=== PATIENT | female | born 1980 | race Two or more races ===

== ENCOUNTER 2018-01-01 09:24 | Inpatient (IN) | payer OTHER ==
[~2018-01-01] VITALS: Ht 160 cm; Wt 95.3 kg
[2018-01-01] VITALS (15 sets, daily range): BP systolic 98–142; BP diastolic 51–78
[~2018-01-01 09:24] MED LIST: METFORMIN HCL500 M5 PO; ceFAZolin sod 2 GM in D5W 110 ML IVPB ONE
[2018-01-01] MEDS ORDERED: LR 1000ml 1,000 ML IVLG SCH (10:10)
[2018-01-01] MEDS ORDERED: Bupivacaine 0.5% Inj 30 ml vial INJ ONE (10:12)
[2018-01-01] MEDS ORDERED: Thrombin 5000 units TOPIC ONE (10:12)
[2018-01-01] MEDS ORDERED: Surgicel 4in x 8in TOPIC ONE (10:13)
[2018-01-01] MEDS ORDERED: EPINEPHrine 1mg/1ml Amp ONE (10:13)
[2018-01-01] MEDS ORDERED: Bacitracin 50000 Units Vial ONE (10:14)
[2018-01-01] MEDS ORDERED: Vancomycin 1gm inj IVPB ONE (10:14)
[2018-01-01] MEDS ORDERED: Labetalol 5mg/ml 20ml vial IV PRN (10:15)
[2018-01-01] MEDS ORDERED: Hydromorphone 0.5mg/0.5ml inj IVP PRN ×2 (10:15→16:15)
[2018-01-01] MEDS ORDERED: DiphenhydrAMINE 50mg/ml Inj IVP PRN ×2 (10:15→16:30)
[2018-01-01] MEDS ORDERED: oxyCODONE HCL/Acetaminophen 5/325mg ORAL PRN (10:15)
[2018-01-01] MEDS ORDERED: Midazolam 2mg/2ml Inj IVP PRN (10:15)
[2018-01-01] MEDS ORDERED: Acetaminophen (Non formulary) 100 ML IV ONE (10:15)
[2018-01-01] MEDS ORDERED: LORazepam Inj 2mg/ml 1ml IV PRN (10:15)
[2018-01-01] MEDS ORDERED: Ketorolac 30mg Inj IV PRN ×2 (10:15)
[2018-01-01] MEDS ORDERED: HYDROcodone/Acetamin 7.5/325 tab ORAL PRN (10:15)
[2018-01-01] MEDS ORDERED: Atropine Inj 1mg/10ml Syr IV PRN (10:15)
[2018-01-01] MEDS ORDERED: Norco 5mg/325mg tab ORAL PRN (10:15)
[2018-01-01] MEDS ORDERED: fentaNYL 100 mcg/2 mL IV PRN ×2 (10:15→16:15)
--- NOTE | 2018-01-01 10:27 | Anethesia Preoperative Eval ---
Anesthesia Pre-op PMH/ROS General Date of Evaluation: Jan 01, 2018 Time of Evaluation: 11:11 Anesthesiologist: Barrett ASA Score: ASA 3 Mallampati Score Class I : Soft palate, uvula, fauces, pillars visible Class II: Soft palate, uvula, fauces visible Class III: Soft palate, base of uvula visible Class IV: Only hard plate visible Mallampati Classification: Class II Surgeon: Symone Diagnosis: Back Pain Surgical Procedure: Bilateral L5-S1 Microdiscectomy, Laminotomy, L L4-5 Microdiscectomy, Lamino Anesthesia History: none Family History: no anesthesia problems Allergies: Coded Allergies: No Known Allergies (Unverified , 12/31/17) Medications: see eMAR Past Medical History Cardiovascular: Reports: HTN Endocrine: Reports: DM Other: obesity - BMI 39 PSxH Narrative: Cholecystectomy, GILMA Anesthesia Pre-op Phys. Exam Physician Exam Last Vital Signs Date Time Temp Pulse Resp B/P (MAP) Pulse Ox O2 Delivery O2 Flow Rate FiO2 01/01/18 09:58 98.5 87 18 136/74 99 Room Air 98.5 Constitutional: NAD Neurologic: CN 2-12 intact Cardiovascular: RRR Respiratory: CTA Gastrointestinal: S/NT/ND Airway Exam Mallampati Score: Class II MO: full ROM: full Teeth: intact Anesthesia Pre-op A/P Labs Urine Test Test 01/01/18 09:40 Urine HCG, Qualitative Negative (NEGATIVE) Risk Assessment & Plan Assessment: ASA 3 Plan: GA, BIS, GlideScope Status Change Before Surgery: No Pre-Antibiotics Dru Grams Ancef IV Given Within 1 Hr of Incision: Yes Time Given: 11:31 Michi Hyde MD Jan 01, 2018 10:26
--- NOTE | 2018-01-01 10:27 | Immediate Post-Op Evaluation ---
Immediate Post-Op Evalulation Immediate Post-Op Evalulation Procedure: Bilateral L5-S1 Microdiscectomy, Laminotomy, L L4-5 Microdiscectomy , Lamino Date of Evaluation: Jan 01, 2018 Time of Evaluation: 15:20 IV Fluids: 1400 LR Blood Products: 0 Estimated Blood Loss: 25 Urinary Output: 350 Blood Pressure Systolic: 129 Blood Pressure Diastolic: 78 Pulse Rate: 91 Respiratory Rate: 16 O2 Sat by Pulse Oximetry: 96 Temperature (Fahrenheit): 97 Pain Score (1-10): 3 Nausea: No Vomiting: No Complications 0 Patient Status: awake, reacts, patent, extubated, none Hydration Status: adequate Dru Grams Ancef IV Given Within 1 Hr of Incision: Yes Time Given: 11:26 Michi Hyde MD Jan 01, 2018 10:27
[2018-01-01] MEDS ORDERED: Sterile Water Irrig 1000ml IRRIG ONE (11:00)
[2018-01-01] MEDS ORDERED: NS Irrig 1000ml ONE (11:00)
[2018-01-01] MEDS ORDERED: Propofol 1,000mg/ 100ml btl IV ONE (11:00)
[2018-01-01] MEDS ORDERED: Glycopyrrolate 0.2mg/ml 1ml Vial ONE (11:00)
[2018-01-01] MEDS ORDERED: fentaNYL 100 mcg/2 mL IV ONE (11:00)
[2018-01-01] MEDS ORDERED: LR 1000ml ONE (11:00)
[2018-01-01] MEDS ORDERED: Lidocaine 1% MPF 10mg/ml 5ml ONE (11:00)
[2018-01-01] MEDS ORDERED: Midazolam 2mg/2ml Inj ONE (11:00)
[2018-01-01] MEDS ORDERED: Neostigmine 1mg/ml 10ml Inj ONE (11:00)
[2018-01-01] MEDS ORDERED: Sodium Chloride 10ml vial INJ ONE (11:00)
[2018-01-01] MEDS ORDERED: Zemuron 50mg/5ml Inj IV ONE (11:00)
--- NOTE | 2018-01-01 11:19 | Pre-Procedure Note/Attestation ---
Pre-Procedure Note/Attestation Complete Prior to Procedure Procedure Narrative: l5s1 laminotomies, microdecompression and microdiscectomy and left l45 laminotomies, microdecompression and microdiscectomy Indications for Procedure Pre-Operative Diagnosis: lumbar hnp with radiculopathy Attestation I attest that I discussed the nature of the procedure; its benefits; risks and complications; and alternatives (and the risks and benefits of such alternatives ), prior to the procedure, with the patient (or the patient's legal career services representative). I attest that, if there was a reasonable possibility of needing a blood transfusion, the patient (or the patient's legal career services representative) was given the [place] Department of [employer] Services standardized written summary, pursuant to the Saul Kathrine Blood Safety Act ([place] Health and Safety Code # 1645, as amended). I attest that I re-evaluated the patient just prior to the surgery and that there has been no change in the patient's H&P, except as documented below: JUAN MANUEL LY Jan 01, 2018 11:19
--- NOTE | 2018-01-01 14:44 | Brief Operative Note ---
Immediate Post Operative Note Operative Note Pre-op Diagnosis: lumbar hnp with radiculopathy Procedure: B/l L5S1 laminotomies, microdeompression and microdiscectomy L L45 laminotomies, microdecompression and microdiscectomy Post-op Diagnosis: same as pre-op Findings: consistent w/pre-op dx studies Surgeon: ALIYAH Pulper: NAZARIO TRACEY, NURSE GRAPHIC DESIGN TEACHER Anesthesiologist: BRIGIDO Anesthesia: general Specimen: yes Complications: none Fluids: 1400 CC CRYSTALLOID Estimated Blood Loss: minimal - 25 CC Drains: none Implant(s) used?: No JUAN MANUEL LY Jan 01, 2018 14:44
[2018-01-01] MEDS ORDERED: D5 1/2NS 1,000 ML IV SCH (15:45)
[2018-01-01] MEDS ORDERED: Rate Change PCA 1 Each MISC PRN (16:00)
--- NOTE | 2018-01-01 16:26 | Diagnostic Imaging Report ---
Indication: Low back pain, left lower extremity greater than right lower extremity, intraoperative Technique: Intraoperative images Comparison: none Findings: Localizer image demonstrates a surgical tool posterior to what is presumably the L5-S1 disc. Impression: Intraoperative imaging, as described
[2018-01-01] MEDS: PCA HYDROmorphone 1mg/ml 30 ML IV PRN (16:29)
[2018-01-01] MEDS ORDERED: PCA Education Pamphlet MISC ONE (17:00)
[2018-01-01] MEDS: PCA shift volume MISC SCH (19:26)
[2018-01-01] MEDS ORDERED: ceFAZolin 1gm/50ml Premix 50 ML IV SCH (22:00)
[2018-01-01] MEDS: ceFAZolin sod 1 GM in NS 55 ML IVPB SCH (22:31)
--- NOTE | 2018-01-01 23:15 | Operative Note - Dictated ---
DATE OF OPERATION: 01/01/2018 PREOPERATIVE DIAGNOSIS: L4-L5 and L5-S1 disc protrusions with stenosis and bilateral lower extremity radiculopathy. POSTOPERATIVE DIAGNOSIS: L4-L5 and L5-S1 disc protrusions with stenosis and bilateral lower extremity radiculopathy. PROCEDURE PERFORMED: 1. Left L5-S1 medial facetectomy, laminotomy, foraminotomy, and microdiscectomy. 2. Right L5-S1 medial facetectomy, laminotomy, and foraminotomy. 3. Left L4-L5 Laminotomy, medial facetectomy, foraminotomy and microdiscectomy. 4. Intraoperative use of microscope. 5. Intraoperative use of fluoroscopy. 6. SSEP and EMG monitoring. SURGEON: Hira Ashby M.D. PUNCHER: Rachel Wesley, nurse first grade teacher. ANESTHESIA: General endotracheal anesthesia. ANESTHESIOLOGIST: Michi Hyde M.D. INTRAOPERATIVE FINDINGS: Herniated nucleus pulposus stenosis and impingement at L4-L5 and L5-S1 with L5 and S1 nerve root impingement. ESTIMATED BLOOD LOSS: 45 mL. FLUIDS: 1.4 liters of crystalloid. INDICATIONS: This is a pleasant female, who has failed nonoperative treatments and options for above surgery was given. Risks, alternatives, and benefits were discussed with the patient. Risks include, but are not limited to, anesthesia complications including , medical complications including liver, kidney, and cardiopulmonary deficits, infection, bleeding, neurovascular injury, CSF leak, dural tear, need for future surgery as well as other complications. The patient understood and wished to proceed. Written and verbal consent was given. DESCRIPTION OF OPERATION: The patient was brought into the operating room supine on a stretcher. Subsequently, appropriate IV lines were placed and 2 g of Ancef was administered. Anesthesia was induced and the patient was successfully intubated. Sequential compression devices were placed on to the bilateral lower extremities. The patient was gently turned over onto the Iam frame. All bony prominences were well padded and the abdomen was assured to lay freely. The L4-L5 and L5-S1 interspaces were identified with preoperative fluoroscopy. The patient was prepped and draped in the usual sterile fashion with alcohol, chlorhexidine scrub, ChloraPrep, and Ioban draping. At this point, the intraoperatively sterilely draped microscope was brought into the field and a midline incision was carried out. Attention was first diverted to dissection and with monopolar cautery, the dorsal lumbar fascia was incised and the laminas at left L5-S1 and left L4-L5 and right L5-S1 were dissected. A radiopaque marker was placed at the level of the S1 pedicle, and the L4-L5 and L5-S1 levels were positively identified. Attention was first diverted to the left L5-S1 level and a safety belt installer retractor was set into place. With a high-speed drill,#1 through #5 Kerrison punches as well as the straight and curved curettes, an interlaminar laminotomy, medial facetectomy, and foraminotomy was carried out at L5-S1. The exiting left L5 nerve root was decompressed and the neural elements were carefully medially retracted and a disk protrusion/herniation at L5-S1 was found. At this point, a high-speed drill was carefully used to drill the outer shell of the disc, which was covered with bone. Once this was accomplished, a #11 blade was used to incise the disc and with a Michaels rongeur, Gunnar curette, nerve hook, as well as a Peapod pituitary, a discectomy was carried out. This was done until there was no further impingement on the traversing S1 nerve root. Once this was accomplished, disk space irrigation was done and no further loose fragments were found. A Valsalva at 40 mmHg was done and there was no CSF leak. The lateral recess foramina and central canal were found to be patent. Now, retractors were placed at the left L4-L5 level and with a high-speed drill, straight and curved curettes as well as number #1 through #5 Kerrison punches, an interlumbar laminotomy, medial facetectomy, and foraminotomy was carried out. The exiting left L4 nerve root was dissected and found to be decompressed, and the neural elements were carefully retracted medially and a disk protrusion/herniation was found at L4-L5. A #11-blade was used to make a horizontal slit incision into the disk herniation and the posterior annulus, and with pituitary rongeurs, Michaels rongeur, Gunnar curette, and Peapod rongeur, a microdiscectomy was carried out and all herniated disc material was removed until there was no further impingement on the neural elements. Once this was completed, disc space irrigation was done and there were no further loose fragments of disk. Valsalva at 40 mmHg was done and there was no CSF leak, and the central canal, lateral recess, and foramina were found to be patent. Now, attention was diverted to right L5-S1 and with the high-speed drill, straight and curved curettes, #1 through #5 Kerrison punches, a interlaminar laminotomy, medial facetectomy, and foraminotomy were carried out until the right L5 nerve nandini, which was exiting and the foramina was found to be patent. The right L5 nerve root was found to be significantly stenotic and a thorough decompression entailed. Once this was accomplished, lateral recess, foramina, and central canal at right L5-S1 was found to be completely patent and Valsalva at 40 mmHg was done and there was no CSF leak. Now, attention was diverted to closure. The wound was irrigated with triple antibiotic solution. 1 g of vancomycin powder was placed suprafascially and subfascially. The dorsal lumbar fascia was closed with #1 Vicryl sutures in a watertight interrupted fashion. The subdural and subcuticular layers were closed with 2-0 Vicryl sutures in an interrupted fashion. The skin was closed with Dermabond and Steri-Strips. A sterile dressing was placed. All sponge, needle, and instrument counts were correct. The patient was turned supine, was extubated in stable condition, and was taken to the recovery room in stable condition and found to be neurovascularly intact. Hira Ashby M.D. DR: LINETTE JOB#: [id number] CC:
[2018-01-02 04:00] VITALS: BP 96/57
[2018-01-02] MEDS: ceFAZolin sod 1 GM in NS 55 ML IVPB SCH ×3 (05:01→21:15)
[2018-01-02] MEDS: PCA shift volume MISC SCH ×2 (07:00→19:00)
[2018-01-02 08:10] VITALS: BP 104/58
--- NOTE | 2018-01-02 08:28 | 48 Hour Post Anesthesia Eval ---
Post Anesthesia Evaluation Procedure: Bilateral L5-S1 Microdiscectomy, Laminotomy, L L4-5 Microdiscectomy , Lamino Date of Evaluation: Jan 02, 2018 Time of Evaluation: 08:27 Blood Pressure Systolic: 102 0: 63 Pulse Rate: 72 Respiratory Rate: 20 Temperature (Fahrenheit): 97.6 O2 Sat by Pulse Oximetry: 98 Airway: patent Nausea: No Vomiting: No Pain Intensity: 2 Hydration Status: adequate Cardiopulmonary Status: stable Mental Status/LOC: patient returned to baseline Follow-up Care/Observations: n/a Post-Anesthesia Complications: none Follow-up care needed: N/A GLO GARCIA M.D. Jan 02, 2018 08:28
[2018-01-02] MEDS: metFORMIN 500mg tab ORAL SCH ×2 (09:17→17:03)
[2018-01-02 12:05] VITALS: BP 122/62
--- NOTE | 2018-01-02 15:52 | General Progress Note ---
Progress Note Progress Note Doing well ambulating well no leg pain mild LBP Avss a and o times 3 dressing cdi 5/5 ble calves soft and nt lt intact in the le a: doing well after sx p: oob pt pain meds scds dc megha am fu 7 days JUAN MANUEL LY Jan 02, 2018 15:52
[2018-01-02 16:10] VITALS: BP 140/74
[2018-01-02] MEDS: PCA HYDROmorphone 1mg/ml 30 ML IV PRN (17:04)
[2018-01-02 20:00] VITALS: BP 109/58
--- NOTE | 2018-01-02 21:42 | History and Physical ---
History of Present Illness Present Illness Allergies: Coded Allergies: No Known Allergies (Unverified , 12/31/17) Medication History Scheduled Metformin HCl (Metformin HCl ER), 500 MG PO BID, (Reported) Patient History Healthcare decision maker Resuscitation status Full Code Advanced Directive on File Physical Exam Last 24 Hour Vital Signs Date Time Temp Pulse Resp B/P (MAP) Pulse Ox O2 Delivery O2 Flow Rate FiO2 01/02/18 20:00 98.9 103 18 109/58 94 Room Air 98.9 01/02/18 19:11 101.2 01/02/18 18:12 101.6 01/02/18 16:10 101.4 98 18 140/74 98 101.4 01/02/18 12:05 98.7 84 20 122/62 96 98.7 01/02/18 08:28 207.7 72 20 98 01/02/18 08:10 98.4 18 104/58 95 98.4 01/02/18 08:10 98.4 80 18 104/58 95 98.4 01/02/18 04:00 16 01/02/18 04:00 98.2 78 16 96/57 98 Nasal Cannula 2.0 98.2 01/02/18 00:00 16 01/01/18 23:11 98.2 82 19 100/56 98 Nasal Cannula 3.0 98.2 Intake and Output 01/01/18 01/02/18 19:00 07:00 Intake Total 800 ml 870 ml Output Total 50 ml 400 ml Balance 750 ml 470 ml Intake Oral 120 ml IV Total 800 ml 750 ml Output Urine Total 25 ml 400 ml Estimated Blood Loss 25 ml # Voids 1 Height (Feet): 5 Height (Inches): 3.00 Weight (Pounds): 210 Medications Current Medications Medications (Trade) Dose Ordered Sig/Danica Route PRN Reason Start Time Stop Time Status Last Admin Dose Admin Acetaminophen (Tylenol) 650 mg Q6H PRN ORAL Mild Pain/Temp > 100.5 01/02/18 08:45 02/01/18 08:44 01/02/18 18:12 Cefazolin Sodium 1 gm/Sodium Chloride 55 ml @ 110 mls/hr Q8HR IVPB 01/01/18 23:00 01/08/18 22:59 01/02/18 21:15 Diphenhydramine HCl (Benadryl) 25 mg Q6H PRN ORAL Itching 01/02/18 08:45 02/01/18 08:44 01/02/18 16:11 Hydromorphone HCl 30 ml @ 0 mls/hr HOSTEL MANAGER protocol PRN IV For Pain 01/01/18 16:00 01/03/18 15:59 01/02/18 17:04 Hydromorphone HCl (Dilaudid) 2 mg Q3H PRN SUBQ Severe BreakthroughPain (7-10) 01/01/18 16:00 01/03/18 15:59 Hydromorphone HCl (Dilaudid) 2 mg Q4H PRN IVP Moderate BreakthroughPain(4-6) 01/01/18 16:00 01/03/18 15:59 Metformin HCl (Glucophage) 500 mg BID ORAL 01/02/18 09:00 02/01/18 08:59 01/02/18 17:03 Miscellaneous Medication (HOSTEL MANAGER Rate Change) 1 ea DAILYPRN PRN MISC For Pain 01/01/18 16:00 01/03/18 15:59 Miscellaneous Medication (HOSTEL MANAGER shift volume) 1 ea Q12HR@0700,1900 MISC 01/01/18 19:00 01/03/18 18:59 01/02/18 19:00 Naloxone HCl (Narcan) 0.1 mg STAT PRN IV RR<10,SBP<90,OR NONRESPONSIVE 01/01/18 16:00 01/31/18 15:59 Ondansetron HCl (Zofran) 4 mg Q6H PRN IVP Nausea & Vomiting 01/01/18 19:00 01/31/18 18:59 01/02/18 16:11 Sodium Chloride 1,000 ml @ 100 mls/hr Q10H IV 01/01/18 19:30 01/31/18 19:29 01/02/18 05:01 Temazepam (Restoril) 7.5 mg HSPRN PRN ORAL Insomnia 01/02/18 16:00 01/09/18 15:59 Sherri Mendoza MD Jan 02, 2018 21:41
[2018-01-03] VITALS (7 sets, daily range): BP systolic 97–150; BP diastolic 59–85
[2018-01-03] MEDS: ceFAZolin sod 1 GM in NS 55 ML IVPB SCH (05:50)
[2018-01-03] MEDS: PCA shift volume MISC SCH (07:18)
[2018-01-03] MEDS: metFORMIN 500mg tab ORAL SCH ×2 (08:56→17:45)
--- NOTE | 2018-01-03 09:00 | Diagnostic Imaging Report ---
Indication: Dyspnea Technique: XRAY Chest 1v Comparison: None Findings: Limited exam due to low lung volumes and underpenetration. Patient is also rotated to the right. Heart size is not reliably assessed due to AP projection and low lung volumes. May be slightly enlarged. There is streaky bibasilar opacities which may be related to atelectasis. There is interstitial opacification/edema. There are patchy right-sided airspace opacities. There is no definite pneumothorax. No acute osseous abnormality appreciated. Surgical clips are noted in the right upper quadrant. IMPRESSION: Limited exam due to underpenetration, patient rotation and low lung volumes. Patchy right-sided airspace opacities which may be related to asymmetric interstitial/alveolar edema, atelectasis and/or pneumonia. These findings may be exaggerated due to low lung volumes. Streaky bibasilar opacities possibly related to subsegmental atelectasis. Heart size and mediastinal contours not reliably assessed. Recommend repeat exam with improved inspiratory effort for better evaluation.
[2018-01-03 09:34] LABS: BASOPHILS % (AUTO) 0.9 % (0.0-2.0); EOSINOPHILS % (AUTO) 0.4 % (0.0-3.0); HEMATOCRIT 32.7 % (37.0-47.0); HEMOGLOBIN 10.9 G/DL (12.0-16.0); LYMPHOCYTES % (AUTO) 18.9 % (20.0-45.0); MEAN CORPUSCULAR VOLUME 84 FL (80-99); MONOCYTES % (AUTO) 5.9 % (1.0-10.0); PLATELET COUNT 163 K/UL (150-450); RED BLOOD COUNT 3.88 M/UL (4.20-5.40); RED CELL DISTRIBUTION WIDTH 12.2 % (11.6-14.8); WHITE BLOOD COUNT 7.6 K/UL (4.8-10.8)
[2018-01-03 09:51] LABS: APPEARANCE,URINE CLEAR; BILIRUBIN, URINE NEGATIVE (NEGATIVE); GLUCOSE, URINE (UA) 1+ (NEGATIVE); KETONES,URINE NEGATIVE (NEGATIVE); LEUKOCYTE ESTERASE ,URINE 2+ (NEGATIVE); NITRITE,URINE NEGATIVE (NEGATIVE); PH,URINE 6 (4.5-8.0); PROTEIN,URINE NEGATIVE (NEGATIVE); UROBILINOGEN,URINE NORMAL MG/DL (0.0-1.0)
[2018-01-03 09:51] LABS: ANION GAP 5 mmol/L (5-15); BLOOD UREA NITROGEN 5 mg/dL (7-18); CALCIUM 7.7 MG/DL (8.5-10.1); CARBON DIOXIDE 27 MMOL/L (21-32); CHLORIDE 103 MMOL/L (98-107); CREATININE 0.7 MG/DL (0.55-1.30); POTASSIUM 3.7 MMOL/L (3.5-5.1); SODIUM 135 MMOL/L (136-145)
[2018-01-03 10:10] LABS: COLOR,URINE YELLOW
[2018-01-03] MEDS ORDERED: Amikacin Rx to dose MISC PRN (10:30)
[2018-01-03] MEDS ORDERED: Amikacin 1,000 MG in NS 110 ML IV SCH (12:00)
[2018-01-03] MEDS: HYDROcodone/Acetamin 10/325 tab ORAL PRN ×2 (13:34→18:55)
[2018-01-03] MEDS ORDERED: Tubing IV Secondary IV ONE (14:10)
--- NOTE | 2018-01-03 14:12 | Pulmonology Progress Note ---
Assessment/Plan Problems: (1) Fever (2) Lumbar radiculopathy Assessment/Plan panculture check curine and blood broad spectrum abx ID evaluation Subjective Interval Events: one episode of chills last night Allergies: Coded Allergies: No Known Allergies (Unverified , 12/31/17) Objective Last 24 Hour Vital Signs Date Time Temp Pulse Resp B/P (MAP) Pulse Ox O2 Delivery O2 Flow Rate FiO2 01/03/18 12:00 98.7 104 19 97/63 95 98.7 01/03/18 08:00 18 01/03/18 08:00 99.3 89 18 100/59 97 99.3 01/03/18 04:00 98.8 107 16 123/74 93 Nasal Cannula 3.0 98.8 01/03/18 01:44 102.7 01/03/18 00:45 101.8 01/03/18 00:00 101.8 115 22 150/85 91 Room Air 101.8 01/03/18 00:00 17 01/02/18 20:00 98.9 103 18 109/58 94 Room Air 98.9 01/02/18 18:12 101.6 01/02/18 16:10 101.4 98 18 140/74 98 101.4 Intake and Output 01/02/18 01/03/18 19:00 07:00 Intake Total 100 ml 1100 ml Balance 100 ml 1100 ml IV Total 100 ml 1100 ml Objective General Appearance: WD/WN HEENT: normocephalic, atraumatic Respiratory/Chest: chest wall non-tender, lungs clear, normal breath sounds Cardiovascular: normal peripheral pulses, normal rate, regular rhythm Abdomen: normal bowel sounds, soft, non tender, no organomegaly Genitourinary: normal external genitalia Extremities: no clubbing Skin: no rash Neurologic/Psychiatric: woven blind loom tender II-XII grossly normal Lymphatic: no neck adenopathy Musculoskeletal: normal muscle bulk Microbiology Date/Time Source Procedure Growth Status 01/01/18 10:00 Nasal Nares MRSA Culture - Final NO METHICILLIN RESISTANT STAPH AUREUS... Complete Laboratory Tests 01/03/18 09:15: White Blood Count 7.6, Red Blood Count 3.88L, Hemoglobin 10.9L, Hematocrit 32.7L , Mean Corpuscular Volume 84, Mean Corpuscular Hemoglobin 28.1, Mean Corpuscular Hemoglobin Concent 33.4, Red Cell Distribution Width 12.2, Platelet Count 163, Mean Platelet Volume 8.1, Neutrophils (%) (Auto) 74.0, Lymphocytes (% ) (Auto) 18.9L, Monocytes (%) (Auto) 5.9, Eosinophils (%) (Auto) 0.4, Basophils (%) (Auto) 0.9, Sodium Level 135L, Potassium Level 3.7, Chloride Level 103, Carbon Dioxide Level 27, Anion Gap 5, Blood Urea Nitrogen 5L, Creatinine 0.7, Estimat Glomerular Filtration Rate > 60, Glucose Level 153H, Calcium Level 7.7L 01/03/18 09:43: Urine Color Yellow, Urine Appearance Clear, Urine pH 6, Urine Specific [place] 1.015, Urine Protein Negative, Urine Glucose (UA) 1+H, Urine Ketones Negative, Urine Occult Blood 1+H, Urine Nitrite Negative, Urine Bilirubin Negative, Urine Urobilinogen Normal, Urine Leukocyte Esterase 2+H, Urine RBC 0-2, Urine WBC 5- 10H, Urine Squamous Epithelial Cells Few, Urine Bacteria Few Current Medications Medications (Trade) Dose Ordered Sig/Danica Route PRN Reason Start Time Stop Time Status Last Admin Dose Admin Acetaminophen (Tylenol) 650 mg Q6H PRN ORAL Mild Pain/Temp > 100.5 01/02/18 08:45 02/01/18 08:44 01/03/18 07:48 Acetaminophen/ Hydrocodone Bitart ([place] 10/325) 1 tab Q4H PRN ORAL FOR MODERATE PAIN 01/03/18 12:15 01/10/18 12:14 01/03/18 13:34 Amikacin Protocol (Amikacin pharmacy to dose) 1 ea DAILY PRN MISC Per rx protocol 01/03/18 10:30 02/02/18 10:29 Amikacin Sulfate 1000 mg/Sodium Chloride 114 ml @ 228 mls/hr Q24H IV 01/03/18 12:00 01/10/18 11:59 01/03/18 13:27 Diphenhydramine HCl (Benadryl) 25 mg Q6H PRN ORAL Itching 01/02/18 08:45 02/01/18 08:44 01/02/18 22:16 Metformin HCl (Glucophage) 500 mg BID ORAL 01/02/18 09:00 02/01/18 08:59 01/03/18 08:56 Ondansetron HCl (Zofran) 4 mg Q6H PRN IVP Nausea & Vomiting 01/01/18 19:00 01/31/18 18:59 01/02/18 16:11 Piperacillin Sod/ Tazobactam Sod 3.375 gm/Sodium Chloride 100 ml @ 25 mls/hr Q8HR IVPB 01/03/18 14:00 01/10/18 13:59 Sodium Chloride 1,000 ml @ 100 mls/hr Q10H IV 01/01/18 19:30 01/31/18 19:29 01/03/18 13:27 Temazepam (Restoril) 7.5 mg HSPRN PRN ORAL Insomnia 01/02/18 16:00 01/09/18 15:59 Vancomycin HCl (Vanco rx to dose) 1 ea DAILY PRN MISC Per rx protocol 01/03/18 10:30 02/02/18 10:29 Vancomycin HCl/ Dextrose 250 ml @ 166.667 mls/hr Q12HR@0100,1300 IVPB 01/03/18 13:00 01/08/18 12:59 Sherri Mendoza MD Jan 03, 2018 14:12
[2018-01-03] MEDS: Vancomycin 1250mg/D5W 250ml IVPB SCH (15:25)
--- NOTE | 2018-01-03 20:44 | Consultation ---
DANIEL DENNIS M.D. Jan 03, 2018 20:44
[2018-01-03] MEDS ORDERED: Morphine Sulfate 4mg/ml Inj IVP PRN (21:45)
[2018-01-04] VITALS: BP 113/69
[2018-01-04] MEDS: Vancomycin 1250mg/D5W 250ml IVPB SCH (01:34)
[2018-01-04] MEDS: HYDROcodone/Acetamin 10/325 tab ORAL PRN ×2 (02:55→14:30)
[2018-01-04 04:00] VITALS: BP 105/59
--- NOTE | 2018-01-04 05:30 | Consultation ---
DATE OF CONSULTATION: 01/04/2018 INFECTIOUS DISEASES CONSULTATION CONSULTING PHYSICIAN: Vidal Diaz M.D. REFERRING PHYSICIAN: Sherri Mendoza M.D. REASON FOR CONSULTATION: Evaluation of the patient for fever, antibiotic management. HISTORY OF PRESENT ILLNESS: The patient is a pleasant 37-year-old female with no significant past medical history except chronic back pain due to herniated disk at the liver L4-L5 and L5-S1 who also been diagnosed recently with diabetes. The patient underwent surgery (laminectomy and microdiskectomy). The patient developed fever. Infectious Disease consultation has been requested for further evaluation of the patient and antibiotic management. PAST MEDICAL HISTORY: 1. Diabetes. 2. Chronic low back pain/disk herniation postop. MEDICATIONS: Zosyn, vancomycin, and amikacin. ALLERGIES: No known drug allergies. SOCIAL HISTORY: Negative for alcohol, drug abuse, or smoking. FAMILY HISTORY: Not contributing. REVIEW OF SYSTEMS: HEENT: No recent change in vision or hearing. PULMONARY: No cough. CARDIOVASCULAR: No chest pain or palpitation. GASTROINTESTINAL/ABDOMEN: No nausea or vomiting. GENITOURINARY: No dysuria. MUSCULOSKELETAL: No pain in extremity. PHYSICAL EXAMINATION: VITAL SIGNS: Temperature 99.7 degrees, blood pressure 113/69, pulse 86, respiratory rate 18, and T-max 101.8 degrees. HEENT: No pale conjunctivae. No icterus. NECK: No lymphadenopathy. CHEST: Clear. HEART: S1 and S2. ABDOMEN: Soft. Wound, no signs of infection. EXTREMITIES: No cyanosis. NEUROLOGIC: Awake and alert. LABORATORY AND DIAGNOSTIC DATA: White blood cells 7.6, hemoglobin 10.9, and platelet 163. BUN and creatinine within normal range. Urine culture is pending. ASSESSMENT: The patient is a 37-year-old female postoperatively developed fever; however, the patient do not have any symptoms. White blood cells normal, all appears to be postoperative fever. PLAN: 1. At this time, we will discontinue antibiotics. 2. Monitor CBC. 3. Monitor BMP. Repeat blood cultures in the morning. We will send blood cultures in the morning. 4. Monitor urine culture. 5. Chest x-ray shows some opacity in bibasilar area that is most likely atelectasis, as the patient do not have cough. Thank you for this consultation. I will follow the patient during this hospitalization. Vidal Diaz M.D. DR: LONNIE JOB#: [id number] CC:
[2018-01-04] MEDS: metFORMIN 500mg tab ORAL SCH (08:25)
[2018-01-04 08:28] VITALS: BP 124/76
[2018-01-04 12:26] VITALS: BP 132/72
[2018-01-04 13:18] LABS: BASOPHILS % (AUTO) 0.5 % (0.0-2.0); EOSINOPHILS % (AUTO) 1.4 % (0.0-3.0); HEMOGLOBIN 11.2 G/DL (12.0-16.0); LYMPHOCYTES % (AUTO) 20.7 % (20.0-45.0); MEAN CORPUSCULAR VOLUME 84 FL (80-99); MONOCYTES % (AUTO) 6.3 % (1.0-10.0); NEUTROPHILS % (AUTO) 71.1 % (45.0-75.0); PLATELET COUNT 186 K/UL (150-450); RED BLOOD COUNT 3.95 M/UL (4.20-5.40); RED CELL DISTRIBUTION WIDTH 11.8 % (11.6-14.8); WHITE BLOOD COUNT 7.2 K/UL (4.8-10.8)
--- NOTE | 2018-01-04 13:23 | Pulmonology Progress Note ---
Assessment/Plan Problems: (1) Fever (2) Lumbar radiculopathy Assessment/Plan panculture check curine and blood off abx ID evaluation appreciated dc home Subjective ROS Limited/Unobtainable: No Interval Events: no symptoms Constitutional: Reports: no symptoms HEENT: Repors: no symptoms, other Allergies: Coded Allergies: No Known Allergies (Unverified , 12/31/17) Objective Last 24 Hour Vital Signs Date Time Temp Pulse Resp B/P (MAP) Pulse Ox O2 Delivery O2 Flow Rate FiO2 01/04/18 12:26 99.0 102 20 132/72 98 Room Air 99.0 01/04/18 08:28 98.7 86 17 124/76 90 98.7 01/04/18 04:00 98.2 89 16 105/59 91 Nasal Cannula 98.2 01/04/18 00:00 99.7 98 17 113/69 93 Room Air 99.7 01/03/18 20:00 98.3 94 17 109/76 93 Room Air 98.3 01/03/18 17:00 98.2 98 18 124/70 97 98.2 01/03/18 16:00 100.0 102 19 127/72 98 100.0 Intake and Output 01/03/18 01/04/18 19:00 07:00 Intake Total 580 ml 700 ml Output Total 400 ml Balance 180 ml 700 ml Intake Oral 480 ml IV Total 100 ml 700 ml Output Urine Total 400 ml # Voids 3 Objective General Appearance: WD/WN HEENT: normocephalic, atraumatic Respiratory/Chest: chest wall non-tender, lungs clear, normal breath sounds Cardiovascular: normal peripheral pulses, normal rate, regular rhythm Abdomen: normal bowel sounds, soft, non tender, no organomegaly Genitourinary: normal external genitalia Extremities: no clubbing Skin: no rash 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 Lymphatic: no neck adenopathy Musculoskeletal: normal muscle bulk Microbiology Date/Time Source Procedure Growth Status 01/03/18 09:43 Urine,Clean Catch Urine Culture - Preliminary Resulted Laboratory Tests 01/03/18 23:59: Random Amikacin Level < 2.0 01/04/18 12:30: White Blood Count [Pending], Red Blood Count [Pending], Hemoglobin [Pending], Hematocrit [Pending], Mean Corpuscular Volume [Pending], Mean Corpuscular Hemoglobin [Pending], Mean Corpuscular Hemoglobin Concent [Pending], Red Cell Distribution Width [Pending], Platelet Count [Pending], Mean Platelet Volume [ Pending], Neutrophils (%) (Auto) [Pending], Lymphocytes (%) (Auto) [Pending], Monocytes (%) (Auto) [Pending], Eosinophils (%) (Auto) [Pending], Basophils (%) (Auto) [Pending], Erythrocyte Sedimentation Rate [Pending], Sodium Level [ Pending], Potassium Level [Pending], Chloride Level [Pending], Carbon Dioxide Level [Pending], Blood Urea Nitrogen [Pending], Creatinine [Pending], Estimat Glomerular Filtration Rate [Pending], Glucose Level [Pending], Calcium Level [ Pending], Phosphorus Level [Pending], Magnesium Level [Pending], Total Bilirubin [Pending], Aspartate Amino Transf (AST/SGOT) [Pending], Alanine Aminotransferase (ALT/SGPT) [Pending], Alkaline Phosphatase [Pending], C- Reactive Protein, Quantitative [Pending], Total Protein [Pending], Albumin [ Pending], Globulin [Pending] Current Medications Medications (Trade) Dose Ordered Sig/Danica Route PRN Reason Start Time Stop Time Status Last Admin Dose Admin Acetaminophen (Tylenol) 650 mg Q6H PRN ORAL Mild Pain/Temp > 100.5 01/02/18 08:45 02/01/18 08:44 01/03/18 15:56 Acetaminophen/ Hydrocodone Bitart (Welcome 10/325) 1 tab Q4H PRN ORAL FOR MODERATE PAIN 01/03/18 12:15 01/10/18 12:14 01/04/18 02:55 Diphenhydramine HCl (Benadryl) 25 mg Q6H PRN ORAL Itching 01/02/18 08:45 02/01/18 08:44 01/03/18 21:26 Metformin HCl (Glucophage) 500 mg BID ORAL 01/02/18 09:00 02/01/18 08:59 01/04/18 08:25 Morphine Sulfate (Morphine Sulfate) 4 mg Q4H PRN IVP Breakthrough Pain 01/03/18 21:45 01/10/18 21:44 01/04/18 04:28 Ondansetron HCl (Zofran) 4 mg Q6H PRN IVP Nausea & Vomiting 01/01/18 19:00 01/31/18 18:59 01/04/18 08:25 Sodium Chloride 1,000 ml @ 100 mls/hr Q10H IV 01/01/18 19:30 01/31/18 19:29 01/04/18 07:34 Temazepam (Restoril) 7.5 mg HSPRN PRN ORAL Insomnia 01/02/18 16:00 01/09/18 15:59 Sherri Mendoza MD Jan 04, 2018 13:23
[2018-01-04 13:31] LABS: ALANINE AMINOTRANSFERASE 22 U/L (12-78); ALBUMIN 2.9 G/DL (3.4-5.0); ALBUMIN/GLOBULIN RATIO 0.7 (1.0-2.7); ALKALINE PHOSPHATASE 67 U/L (46-116); ANION GAP 10 mmol/L (5-15); ASPARTATE AMINO TRANSFERASE 15 U/L (15-37); BILIRUBIN,TOTAL 0.5 MG/DL (0.2-1.0); BLOOD UREA NITROGEN 5 mg/dL (7-18); CALCIUM 8.4 MG/DL (8.5-10.1); CARBON DIOXIDE 26 MMOL/L (21-32); CHLORIDE 103 MMOL/L (98-107); CREATININE 0.6 MG/DL (0.55-1.30); PHOSPHORUS 2.3 MG/DL (2.5-4.9); POTASSIUM 3.6 MMOL/L (3.5-5.1); SODIUM 139 MMOL/L (136-145)
[2018-01-04] MEDS ORDERED: NORCO 5-325 TA1 EAC1 ORAL (13:49)
[2018-01-04] MEDS ORDERED: NAPROSYN500 M1 ORAL (13:50)
[2018-01-04] MEDS ORDERED: 1/2 NS 1000ml IV ONE (13:59)
[2018-01-04] MEDS ORDERED: Tubing IV Secondary IV ONE (13:59)
--- NOTE | 2018-01-05 15:34 | Discharge Summary ---
Discharge Summary Hospital Course Date of Admission Jan 01, 2018 at 09:24 Date of Discharge Jan 04, 2018 at 14:00 Admitting Diagnosis L4-L5 and L5-S1 disc protrusions with stenosis and bilateral lower extremity radiculopathy. Reason for Hospitalization: elective surgery HPI Jami Arauz is a 37 year old female who was admitted on Jan 01, 2018 at 09:24 for L4-L5 and L5-S1 disc protrusions with stenosis and bilateral lower extremity radiculopathy. Consultations Tracie Koehler-IM Brandy De La Torre - ID specialist Procedures PROCEDURE PERFORMED: 1. Left L5-S1 medial facetectomy, laminotomy, foraminotomy, and microdiscectomy. 2. Right L5-S1 medial facetectomy, laminotomy, and foraminotomy. 3. Left L4-L5 Laminotomy, medial facetectomy, foraminotomy and microdiscectomy. 4. Intraoperative use of microscope. 5. Intraoperative use of fluoroscopy. 6. SSEP and EMG monitoring. Hospital Course s/p surgery initially IVF until tolerated diet pain management OOB and ambulated with PT neurovascular stable dressing C/D/I developed postop fever encouraged use of IS while in the bed q 1 hr x 10 started on empiric abx, ID specialist followed UA no evidence of UTI, urine cx + mixed GPO, CXR with some patchy opacities, likely atelectasis, no cough, no congestion fever resolved, off abx as per ID suggestion SCD for DVT prophylaxis bowel regimen instituted BS management with Metformin pain controlled, dressing C/D/I, neurovascular stable, ambulated, tolerated diet , voided freely , cleared for dc outpt fup with surgeon as advised FINAL DIAGNOSIS lumbar herniated nucleus pulposa with radiculopathy s/p bilateral L5S1 laminotomies, microdecompression and microdiscectomy; Left L45 laminotomy, microdecompression and microdiscectomy postoperative fever DM Discharge Medications Continued Medications: Hydrocodone Bit/Acetaminophen 5-325* ([place] 5-325 Tablet*) 1 Each Tablet 1 TAB ORAL Q6HR PRN for For Pain, TAB Metformin HCl (Metformin HCl ER) 500 Mg [id number] 500 MG PO BID, TAB Naproxen* (Naprosyn*) 500 Mg Tablet 500 MG ORAL TWICE A DAY, TAB Discharge Condition Upon Discharge: stable Discharge Disposition Patient was discharged to Home (01) Discharge Diagnoses: Discharge Instructions Discharge Instructions Special Instructions I have been assigned to complete a D/C Summary on this account. I was not involved in the patient management Nicki De La Cruz NP ([place]) Jan 05, 2018 15:33
== END 2018-01-04 14:00 | disposition home or self-care (01) | DRG 520 ==
LOC: SDSOVERFLO 09:24 → 3E 17:56
PROC: 0SB40ZZ Excision of Lumbosacral Disc, Open Approach (ICD-10-PCS; principal; 2018-01-01 11:00)
PROC: 4A11X4G Monitoring of Peripheral Nervous Electrical Activity, Intraoperative, External Approach (ICD-10-PCS; principal; 2018-01-01 11:00)
PROC: 0QB00ZZ Excision of Lumbar Vertebra, Open Approach (ICD-10-PCS; principal; 2018-01-01 11:00)
DX: M51.16 Intervertebral disc disorders with radiculopathy, lumbar region (principal); E11.9 Type 2 diabetes mellitus without complications; M48.061 Spinal stenosis, lumbar region without neurogenic claudication; M51.17 Intervertebral disc disorders with radiculopathy, lumbosacral region
CPT/HCPCS: 36415; 71045; 72020; 76001; 80048; 80053; 80150; 81001; 81025; 82962; 83735; 84100; 85025; 85651; 86140; 86850; 86900; 86901; 87040; 87081; 87086; 94003; 94150; J2250; J2405; J2710